=== PATIENT | female | born 1990 | race Caucasian/White ===

== ENCOUNTER → 2016-12-05 | Outpatient (CLI) | payer OTHER ==
[~2016-12-05] MED LIST: B-COCAP2 PO; MULT-506 PO; OXYC7.5T78 PO
--- NOTE | 2016-12-05 13:35 | MAMMOGRAPHY REPORT ---
BILATERAL DIGITAL SCREENING MAMMOGRAM TOMOSYNTHESIS WITH CAD: 12/05/2016 CLINICAL HISTORY: Routine screening. Patient has no complaints. Family history of breast cancer wi th mother diagnosed at age 35. TECHNIQUE: Breast tomosynthesis in addition to standard 2D mammography was performed. Current study was also evaluated with a Computer Aided Detection (CAD) system. COMPARISON: Comparison is made to exams dated: 12/04/2015 mammogram, 11/29/2014 mammogram, and 014 mammogram - [facility]. BREAST COMPOSITION: The tissue of both breasts is extremely dense, which lowers the sensitivity of mammography. FINDINGS: No suspicious masses, calcifications, or areas of architectural distortion are noted in e ither breast. There has been no significant interval change compared to prior exams. IMPRESSION: ACR BI-RADS CATEGORY 1: NEGATIVE There is no mammographic evidence of malignancy. A 1 year screening mammogram is recommended. Addit ionally, given the extremely dense breast parenchyma mammographically and given the strong family hi story of breast cancer, consider yearly screening breast MRI in addition to yearly mammography. The patient will receive written notification of the results. Approximately 10% of breast cancers are not detected with mammography. A negative mammographic repor t should not delay biopsy if a clinically suggestive mass is present. Yessi Ramon M.D. ah/:12/05/2016 12:45:36 Board Certified Orthodontist: Samantha HERNANDEZ)(Gia), [facility] letter sent: Normal 1/2 BI-RADS Code: ACR BI-RADS Category 1: Negative
== END | disposition home or self-care (01) ==
LOC: C.MAMM 12:18
PROVIDERS: ATTEND Obstetrics & Gynecology
DX: Z12.31 Encounter for screening mammogram for malignant neoplasm of breast (principal); Z80.3 Family history of malignant neoplasm of breast

== ENCOUNTER → 2017-07-16 | Outpatient (CLI) | payer OTHER ==
[2017-07-16 10:21] LABS: THYROID STIMULATING HORMONE 1.93 uIu/ml (0.300-4.500)
== END | disposition home or self-care (01) ==
LOC: C.LAB1850 08:59
PROVIDERS: ATTEND Internal Medicine
DX: R53.83 Other fatigue (principal)

== ENCOUNTER → 2017-09-10 | Outpatient (CLI) | payer OTHER | END | disposition home or self-care (01) | LOC: C.PAPS 13:52 | PROVIDERS: ATTEND Obstetrics & Gynecology | DX: Z12.4 Encounter for screening for malignant neoplasm of cervix (principal) ==

== ENCOUNTER → 2017-09-10 | Outpatient (CLI) | payer OTHER | END | disposition home or self-care (01) | LOC: C.LABSPEC 13:17 | PROVIDERS: ATTEND Obstetrics & Gynecology | DX: Z11.3 Encounter for screening for infections with a predominantly sexual mode of transmission (principal) ==

== ENCOUNTER → 2017-12-18 | Outpatient (CLI) | payer OTHER ==
[2017-12-18 12:30] LABS: BASO % 0.5 %; BASO ABS # 0.03 K/uL (0-0.2); EOS % 0.5 %; EOS ABS # 0.03 K/uL (0-0.5); HEMATOCRIT 35.8 % (37-47); HEMOGLOBIN 12.8 g/dL (12.0-16.0); IG# 0.01 K/uL (0.00-0.02); LYMPH % 27.7 %; LYMPH ABS # 1.54 K/uL (1.2-3.4); MEAN CELL VOLUME 84.4 fL (80-100); MEAN CORPUSCULAR HEMOGLOBIN 30.2 pg (25-34); MEAN CORPUSCULAR HGB CONC 35.8 g/dl (32-36); MONO % 6.7 %; MONO ABS # 0.37 K/uL (0.11-0.59); NEUT % 64.4 %; NEUT ABS # 3.58 K/uL (1.4-6.5); PLATELET COUNT 246 K/uL (130-400); RED CELL DISTRIBUTION WIDTH CV 12.4 % (11.5-14.5); RED CELL DISTRIBUTION WIDTH SD 37.7 fL (36.4-46.3); WHITE BLOOD COUNT 5.56 K/uL (4.8-10.8)
== END | disposition home or self-care (01) ==
LOC: C.LAB1850 11:18
PROVIDERS: ATTEND Obstetrics & Gynecology
DX: Z34.01 Encounter for supervision of normal first pregnancy, first trimester (principal)

== ENCOUNTER → 2018-04-23 | Outpatient (CLI) | payer OTHER ==
[2018-04-23 12:14] LABS: HEMOGLOBIN 11.1 g/dL (12.0-16.0)
== END | disposition home or self-care (01) ==
LOC: C.LAB1850 10:45
PROVIDERS: ATTEND Obstetrics & Gynecology
DX: Z34.03 Encounter for supervision of normal first pregnancy, third trimester (principal)

== ENCOUNTER 2022-11-29 15:11 | Inpatient (IN) ==
[~2022-11-29 15:11] MED LIST changes: -B-COCAP2 PO; -MULT-506 PO; -OXYC7.5T78 PO; +ceFAZolin 2000MG 2,000 MG/15 ML SYR IV SCH
--- NOTE | 2022-11-29 15:19 | History & Physical Report ---
Date of Service November 29, 2022 Assessment & Plan (1) PROM (premature rupture of membranes): Plan: Clear evidence of rupture of membranes on sterile speculum exam including pooling ferning and nitrazine positive patient wishes a repeat section she will be sent to labor and delivery which she has arrived already Repeat section. The patient was counseled to the nature of the procedure including alternatives such as labor. Risks were discussed including bleeding infection injury to bowel bladder ureter vessels and even baby. The risks of internal organ injury were discussed as being higher with prior sections. Deep Vein Thrombosis, pulmonary embolus and breakdown of the incision discussed. Deep vein thrombosis pulmonary embolus hernia and failure of the incision to heal were discussed Patient verbalized understanding of this and was given ample time to ask questions Admission and Anticipated Discharge Date Admission Date: November 29, 2022 History of Present Illness Primary Care Provider: Tamara Casillas MD Visit DANIA Calculator Estimated Delivery Date Method Current WG Current Estimate 12/09/22 LMP (Certain) 38w 4d LMP: 03/04/22 : 2 Full term: 1 Premature: 0 Total Number of Induced Abortions: 0 Total Number of Spontaneous Abortions: 0 Ectopics: 0 Multiple births: 0 Number of Living Children: 1 and Delivery Plans Previous Wishes repeat C/S SCHEDULED FOR 12/09/[address] SALEEM Need for Rhogam d/t Rh neg mother Rhogam given 09/20/22 - [place] Flu vaccine given 06/14/22- MK GDM w/28wk glucola *Begin monthly Growth US's 34 weeks AC >98, efw 97% Allergies Allergy/AdvReac Type Severity Reaction Status Date / Time No Known Allergies Allergy Mild Verified 11/29/22 14:31 Home Medications Medication Instructions Recorded Confirmed Type breast pump #1 ea 10/04/22 11/21/22 Rx acetone (urine) test (Ketone Urine #50 ea 10/11/22 11/21/22 Rx Test strips) blood sugar diagnostic (OneTouch #150 ea 10/11/22 11/21/22 Rx Verio test strips) blood-glucose meter (OneTouch #1 ea 10/11/22 11/21/22 Rx Verio Reflect Meter) blood-glucose sensor (FreeStyle #2 ea 10/11/22 11/21/22 Rx Soheila 3 Sensor device) lancets 33 gauge (OneTouch Delica #150 ea 10/11/22 11/21/22 Rx Lancets) nutritional supplement-fiber 1 dose PO UD 11/01/22 11/28/22 History [Juice Plus] ondansetron HCl 4 mg tablet 4 mg PO Q6H PRN nausea and 11/01/22 11/28/22 Rx vomiting #20 tabs docusate sodium 100 mg capsule 100 mg PO DAILY 11/28/22 11/28/22 History (Colace) iron 18 mg tablet 18 mg PO BID 11/28/22 11/28/22 History Patient History Medical History History of chicken pox History of COVID-19 09/2021>RESOLVED History of septic arthritis Polycystic ovarian syndrome Surgical History History of X 1 History of wisdom tooth extraction Hx of hand surgery d/t tenosynovitis>RT RING FINGER Family History Mother Breast cancer, Onset Age: 35 no testing Grandmother (Maternal) Myocardial infarction Other No family history of adverse response to anesthesia Denies family history of Ovarian cancer Prostate cancer Colorectal cancer Social History (Updated 05/17/22 @ 09:53 by Elen Garcia) Smoking Status: Never smoker Second Hand Exposure: No; Hx Alcohol Use: No Hx Substance Use: No Preferred Language: [place] Verdean Communication Ability: Effective Knocker Off Required: No Beliefs That Will Affect Care: None marital status: Single marital status details: eagle Ortiz Andrea [phone] Current Living Situation: Family Current Living Situation Comment: SON AND BOYFRIEND current occupational status: employed current occupation: [employer] L[employer]D How many Children do You have: 1 Feels Safe at Home: Yes Dental Care, Regularly: Yes Physical Activity Frequency: Daily Physical Activity Frequency Comment: activae job and has 2 y/o Seatbelt Use: always Sunscreen Use: Yes Assistive Devices: Contacts and Glasses Review of Systems as per Subjective / HPI Physical Exam Constitutional: WD/WN, vitals as above well developed and well nourished Respiratory: normal respiratory effort, lungs clear to auscultation normal respiratory effort Cardiovascular: RRR, no murmur, no edema Gastrointestinal (Abdomen): normal bowel sounds, soft, nontender, no hepatosplenomegaly Coding Level of Care Code None Diagnoses PROM (premature rupture of membranes) O42.90
[2022-11-29] MEDS ORDERED: AZITHROMYCIN 500 MG in DEXTROSE 5% 250 ML IV STA (15:40)
[2022-11-29] MEDS ORDERED: LACTATED RINGER'S 1,000 ML IV SCH (15:45)
[2022-11-29] MEDS ORDERED: MoRPHine SULFATE PF 1 MG/ML 10 ML AMP/VIAL ONE (16:04)
[2022-11-29] MEDS ORDERED: fentaNYL citrate PF 100 MCG/2 ML VIAL ONE (16:05)
[2022-11-29] MEDS ORDERED: CITRIC ACID/SODIUM CITRATE 15 ML UDC ONE (16:08)
--- NOTE | 2022-11-29 16:09 | Anesthesiology Consultation ---
Date of Service November 29, 2022 Assessment & Plan Chart Review Chart Review: Acceptable Risk for Surgery and Patient NOT seen in Pre Admission Testing Consults Requested none History Height/Weight Height: 5 ft 5 in Weight: 60.781 kg Allergies Allergy/AdvReac Type Severity Reaction Status Date / Time No Known Allergies Allergy Mild Verified 11/29/22 14:31 Medications Home Medications Medication Instructions Recorded Confirmed Last Taken breast pump #1 ea 10/04/22 11/21/22 Unknown acetone (urine) test (Ketone Urine #50 ea 10/11/22 11/21/22 Unknown Test strips) blood sugar diagnostic (OneTouch #150 ea 10/11/22 11/21/22 Unknown Verio test strips) blood-glucose meter (OneTouch #1 ea 10/11/22 11/21/22 Unknown Verio Reflect Meter) blood-glucose sensor (FreeStyle #2 ea 10/11/22 11/21/22 Unknown Soheila 3 Sensor device) lancets 33 gauge (OneTouch Delica #150 ea 10/11/22 11/21/22 Unknown Lancets) nutritional supplement-fiber 1 dose PO UD 11/01/22 11/28/22 Unknown [Juice Plus] ondansetron HCl 4 mg tablet 4 mg PO Q6H PRN nausea and 11/01/22 11/28/22 Unknown vomiting #20 tabs docusate sodium 100 mg capsule 100 mg PO DAILY 11/28/22 11/28/22 Unknown (Colace) iron 18 mg tablet 18 mg PO BID 11/28/22 11/28/22 Unknown Active Medications Generic Name Dose Route Start Last Admin Trade Name Freq PRN Reason Stop Dose Admin Lactated Ringer's 1,000 mls @ 999 mls/hr 11/29/22 15:45 11/29/22 15:59 Lr IV 11/29/22 16:45 125 mls/hr .Q1H1M ERICK Infusion Azithromycin 500 mg/ Dextrose 255 mls @ 127.5 mls/hr 11/29/22 15:40 11/29/22 15:56 IV 11/29/22 17:39 127.5 mls/hr NOW STA Administration Past Medical History Medical History History of chicken pox History of COVID-19 09/2021>RESOLVED History of septic arthritis Polycystic ovarian syndrome Past Family History Family History Mother Breast cancer, Onset Age: 35 no testing Grandmother (Maternal) Myocardial infarction Other No family history of adverse response to anesthesia Denies family history of Ovarian cancer Prostate cancer Colorectal cancer Past Surgical History Surgical History History of X 1 History of wisdom tooth extraction Hx of hand surgery d/t tenosynovitis>RT RING FINGER Social History Smoking Status: Never smoker Do You Dip or Chew Tobacco: No Hx Alcohol Use: No Hx Substance Use: No substance use type: does not use Physical Exam Vital Signs Last Vital Signs Temp 98.6 F 11/29/22 15:34 Pulse 107 H 11/29/22 15:37 Resp 18 11/29/22 15:34 BP 118/90 11/29/22 15:37
[2022-11-29 16:45] LABS: Hematocrit (blood only) 34.6 % (37.0-47.0); Hemoglobin 11.7 g/dl (12.0-16.0); Mean Corpuscular Hemoglobin 29.5 pg (25.0-34.0); Mean Corpuscular Hgb Conc 33.8 g/dL (32.0-36.0); Mean Corpuscular Volume 87.4 fL (80.0-100.0); Mean Platelet Volume 10.6 fL (9.4-12.4); Platelet Count 233 K/uL (130-400); RDW Coefficient of Variation 13.9 % (11.5-14.5); RDW Standard Deviation 44.5 fL (36.4-46.3); Red Blood Count 3.96 M/uL (4.20-5.40); White Blood Count 6.81 K/ul (4.8-10.8)
[2022-11-29] MEDS ORDERED: NALBUPHINE HCL INJ 10 MG/ML AMP IV PRN (17:20)
[2022-11-29] MEDS ORDERED: HYDROmorphone INJ 0.5 MG/0.5 ML SYR IV PRN (17:20)
[2022-11-29] MEDS ORDERED: diphenhydrAMINE 50 MG/ML VIAL IV PRN (17:20)
[2022-11-29] MEDS ORDERED: NALOXONE HCL 0.4 MG/1 ML VIAL/CARP IV PRN (17:20)
[2022-11-29] MEDS ORDERED: LACTATED RINGER'S 500 ML IV PRN (17:20)
[2022-11-29] MEDS ORDERED: MoRPHine SULFATE PF 1 MG/ML 10 ML AMP/VIAL INT SPINAL ONE (17:20)
[2022-11-29] MEDS ORDERED: NALOXONE HCL 0.08 MG in SYRINGE 1.8 ML IV PRN (17:20)
[2022-11-29] MEDS ORDERED: PROMETHAZINE HCL 6.25 MG in SODIUM CHLORIDE 0.9% 50 ML IV PRN (17:20)
[2022-11-29] MEDS ORDERED: ONDANSETRON INJ 2 MG/ML 2 ML VIAL IV PRN (17:20)
[2022-11-29] MEDS ORDERED: NALOXONE HCL 1 MG in SODIUM CHLORIDE 0.9% 1000ML 1,000 ML IV PRN (17:20)
[2022-11-29] MEDS ORDERED: ePHEDrine sulfate 50 MG/ML AMP IV PRN (17:20)
[2022-11-29] MEDS ORDERED: DC INTRASPINAL MORPHINE SCH (17:30)
[2022-11-29] MEDS ORDERED: NO NARCOTICS OR SEDATIVES SCH (17:30)
[2022-11-29] MEDS ORDERED: SODIUM CHLORIDE 0.9% 1000ML 1,000 ML IV SCH (17:30)
[2022-11-29] MEDS ORDERED: ONDANSETRON INJ 2 MG/ML 2 ML VIAL ONE (17:32)
[2022-11-29] MEDS ORDERED: PHENYLEPHRINE HCL 10 MG/ML VIAL ONE (17:32)
[2022-11-29] MEDS ORDERED: KETOROLAC 30 MG/ML VIAL ONE (17:32)
--- NOTE | 2022-11-29 18:10 | Operative Report ---
PG Post Operative Report Pre & Post Diagnosis Operation Date: 11/29/22 16:40 Pre-Op Diagnosis: PROM (premature rupture of membranes) Repeat section Post-Op Diagnosis: Same as pre-op I identified the patient and participated in the time-out.: Yes Procedure Operation Date: 11/29/22 16:40 Actual Procedures p Section in LD; Live male child at 1724(Bilateral) - Heike Lemus MD, FACOG Surgeon Heike Lemus MD, FACOG Edger Liner Dr. Rodriguez Estimated Blood Loss 600 Findings Consistent with Post-Op Diagnosis Specimens cord blood Description of Procedure Regional anesthetic had been given by anesthesia patient was prepped and draped with a leftward tilt preoperative antibiotics had been given in appropriate timing by anesthesiology. Once the prep was allowed to fully dry timeout was performed. Pickups with teeth were used to test the incision area was found to be adequate for incision as the patient did not feel sharp pain. Scalpel was used to make a Pfannenstiel incision on the lower abdomen. We then cut through the subcutaneous fat down to the level of the anterior rectus sheath fascia this was cut in the midline and then extended laterally with the curved Bagley scissors. At this stage we then placed 2 Mark clamps on the anterior aspect of the fascia. Using the curved Bagley's we are able to dissect the fascia superiorly away from the rectus muscles. Care was taken to maintain hemostasis. Mark clamps were then placed to the inferior aspect of the anterior sheath of the fascia. Fascia was then dissected away from the rectus muscles inferiorly towards the pubic bone. A Mark was then placed in the midline both inferiorly and superiorly. This was to allow exposure by retraction rectus muscles were in the midline with were then able to cut through the peritoneum and then enter the peritoneal cavity. Opening was enlarged to allow exposure of the peritoneal cavity both superiorly and inferiorly. Once adequate space was obtained a bladder retractor was placed to expose the lower segment Metzenbaums were used to dissect the bladder flap inferiorly away from the uterus. This was done sharply bladder retractor was then repositioned to expose the lower segment of the uterus Fresh scalpel was used to make a low transverse incision on the uterus. Uterus was then entered bluntly with the operators finger, membranes ruptured and the opening was enlarged using the operators fingers bluntly pulling superiorly and inferiorly to allow exposure. Baby was delivered by first flexion of the head elevation of the head out of the pelvis and then pressure by the placement assistant on the maternal abdomen. Baby's head was then delivered mouth and then nares were suctioned and then using gentle traction the baby was fully delivered. Live vigorous infant. Fluid was clear cord clamped and cut cord gases obtained cord blood obtained baby handed to pediatrics. Placenta removed was removed with traction we ensure the entire placenta was removed with a moist lap sponge into the uterus. Note baby was large and had a loose nuchal cord that was passed over the head fluid was clear baby was in occiput posterior when delivered Uterus was then exteriorized. IV Pitocin had been started by anesthesia tone improved there were no extensions the uterus was then closed using 0 Monocryl in a 2 layer closure the first layer closed in a running locked fashion from left to right and then a second closure from left to right in a running nonlocked fashion. There was an area of lack of hemostasis at the posterior aspect of the bladder on the uterus this was isolated with a hemostat and then tied off with a [id number] 3-0 Vicryl a second 0 Monocryl was placed at a small area of lack of hemostasis at the right corner of the uterine incision At this stage hemostasis was excellent. Uterus was placed back in the peritoneal cavity with suction irrigation out and inspection of the uterus at this stage revealed excellent hemostasis Retractors were removed urine color was clear at this stage of the case we inspected the rectus muscles they were hemostatic fascia was closed with 0 Vicryl subcutaneous fat was irrigated and closed with 3-0 Vicryl skin closed with 4-0 subcuticular Monocryl I attest to the content of the Intraoperative Record and any orders documented therein. Any exceptions are noted below. OB Procedure Charges 40860
[2022-11-29] MEDS ORDERED: OXYTOCIN 10 UNITS/ML 10ML VIAL ONE (18:26)
[2022-11-29] MEDS ORDERED: HYDROCORTISONE ACETATE 25 MG SUPP PR PRN (18:31)
[2022-11-29] MEDS ORDERED: MAGNESIUM HYDROXIDE SUSP 30 ML UDC PO PRN (18:31)
[2022-11-29] MEDS ORDERED: BENZOCAINE 20% AER SPR 82.5 GM CAN EXT PRN (18:31)
[2022-11-29] MEDS ORDERED: PROMETHAZINE HCL 25 MG in SODIUM CHLORIDE 0.9% 50 ML IV PRN (18:31)
[2022-11-29] MEDS ORDERED: DIPHTHERIA/TETANUS/PERTUSSIS 0.5mL SYR/VIAL (Age 7+yrs) IM ONE (18:31)
[2022-11-29] MEDS ORDERED: SENNA 8.6 MG TAB PO PRN (18:31)
--- NOTE | 2022-11-29 18:32 | Anesthesiology Progress Note ---
Date of Service November 29, 2022 Anesthesia Post Procedure Vital Signs Vital Signs: Temp Pulse Resp BP Pulse Ox 11/29/22 18:26 83 98 11/29/22 18:21 78 95 11/29/22 18:20 69 106/64 11/29/22 15:37 107 H 118/90 11/29/22 15:34 98.6 F 18 Transfer of Care Handoff Completed per policy Notes Mental Status: alert / awake / arousable and participated in evaluation Patient Amnestic to Procedure: No Nausea / Vomiting: adequately controlled Pain: adequately controlled Airway Patency, RR, SpO2: stable & adequate BP & HR: stable & adequate Hydration State: stable & adequate Neuraxial Anesthesia: was administered and sensory block is resolving Anesthetic Complications: no major complications apparent and Pt Satisfied with anesthetic care
[2022-11-29] MEDS ORDERED: SODIUM CHLORIDE 0.9% 250 ML IV PRN (19:43)
[2022-11-29] MEDS: OXYTOCIN 20 UNITS in LACTATED RINGER'S 1,000 ML IV SCH (20:38)
[2022-11-29] MEDS: ACETAMINOPHEN 1,000 MG/100 ML VIAL IV PRN (20:39)
[2022-11-29] MEDS: DOCUSATE SODIUM 100 MG CAP PO SCH (23:49)
[2022-11-29] MEDS: SIMETHICONE 80 MG CHEW PO SCH (23:50)
[2022-11-30] MEDS: KETOROLAC 30 MG/ML VIAL IV PRN ×2 (00:46→06:28)
[2022-11-30] MEDS: ACETAMINOPHEN 1,000 MG/100 ML VIAL IV PRN (04:10)
[2022-11-30] MEDS: OXYTOCIN 20 UNITS in LACTATED RINGER'S 1,000 ML IV SCH (04:13)
--- NOTE | 2022-11-30 05:29 | Obstetrical Progress Note ---
Date of Service <Shanthi MillerDO - Last Filed: 11/30/22 07:18> November 30, 2022 Assessment & Plan <Shanthi MillerDO - Last Filed: 11/30/22 07:18> (1) Status post section: continue OOB, ambulation, diet as tolerated <Naty Rodriguez MD - Last Filed: 11/30/22 07:40> (1) Status post section: Subjective <Shanthi MillerDO - Last Filed: 11/30/22 07:18> Vanesa is a 32 y/o female who is POD #1 following delivery at 38 4/7 weeks. She reports feeling well overall this morning. Mild abdominal cramping, well managed on analgesics. Bazzi is still in place. Tolerating fluids overnight. Has some persistent lochia with some improvement this morning. Currently breast feeding. Review of Systems Denies fever, chills, sweats Denies shortness of breath, difficulty breathing, chest pain, palpitations, chest pressure. Denies breast pain. Denies dysuria. Denies headache or changes in vision. Physical Exam <Shanthi MillerDO - Last Filed: 11/30/22 07:18> General: Alert, oriented. No acute distress. Cardiac: Regular rate and rhythm, no murmurs/rubs/gallops. Respiratory: Clear to auscultation bilaterally a/p, no wheezes/rales/rhonchi. No increased work of breathing. Symmetrical chest rise. No respiratory distress. Abdomen: Soft, nontender, nondistended. Uterus: Uterine fundus firm. Surgical scar clean and healing well. Lower Extremities: No lower extremity edema or swelling. No deep calf pain. Results & Data <Shanthi MillerDO - Last Filed: 11/30/22 07:18> Vital Signs (Past 12 Hours) Vital Signs Temp Pulse Pulse Pulse Resp BP BP 11/30/22 05:03 18 11/30/22 04:30 36.4 C L 68 18 98/64 L 11/30/22 04:02 18 11/30/22 03:00 16 11/30/22 02:00 18 11/30/22 00:57 16 11/30/22 00:00 16 11/29/22 23:00 18 11/29/22 23:05 36.8 C 70 18 98/58 L 11/29/22 22:00 18 11/29/22 21:15 18 11/29/22 21:15 36.6 C 60 60 20 105/66 11/29/22 20:25 18 11/29/22 20:25 18 11/29/22 19:55 37.0 C 18 11/29/22 19:25 18 11/29/22 19:25 36.7 C 18 11/29/22 18:55 36.5 C 62 18 102/67 11/29/22 18:45 18 11/29/22 18:35 16 11/29/22 18:25 36.5 C 18 11/29/22 20:49 87 11/29/22 20:44 81 11/29/22 20:39 72 11/29/22 20:34 76 11/29/22 20:29 75 11/29/22 20:30 70 115/62 11/29/22 20:24 75 11/29/22 20:19 66 11/29/22 20:14 84 11/29/22 20:09 74 11/29/22 20:04 81 11/29/22 19:59 65 11/29/22 19:54 65 11/29/22 19:49 76 11/29/22 19:44 65 11/29/22 19:41 66 106/56 L 11/29/22 19:39 73 11/29/22 19:34 77 11/29/22 19:31 55 L 112/67 11/29/22 19:29 70 11/29/22 19:24 73 11/29/22 19:22 80 109/51 L 11/29/22 19:19 70 11/29/22 19:14 70 11/29/22 19:13 71 154/59 H 11/29/22 19:08 66 11/29/22 19:06 68 11/29/22 19:01 75 11/29/22 19:02 65 110/56 L 11/29/22 18:56 73 11/29/22 18:51 11/29/22 18:51 70 11/29/22 18:51 74 11/29/22 18:46 82 11/29/22 18:41 133 H 11/29/22 18:36 91 H 11/29/22 18:33 80 11/29/22 18:31 83 115/68 11/29/22 18:26 83 11/29/22 18:21 78 11/29/22 18:20 69 106/64 Pulse Ox O2 Del Method 11/30/22 05:03 97 11/30/22 04:30 98 Room Air 11/30/22 04:02 97 11/30/22 03:00 95 11/30/22 02:00 97 11/30/22 00:57 99 11/30/22 00:00 97 11/29/22 23:00 98 11/29/22 23:05 98 Room Air 11/29/22 22:00 98 11/29/22 21:15 100 11/29/22 21:15 100 Room Air 11/29/22 20:25 99 11/29/22 20:25 98 11/29/22 19:55 99 11/29/22 19:25 98 11/29/22 19:25 99 11/29/22 18:55 99 Room Air 11/29/22 18:45 11/29/22 18:35 11/29/22 18:25 11/29/22 20:49 100 11/29/22 20:44 100 11/29/22 20:39 100 11/29/22 20:34 100 11/29/22 20:29 100 11/29/22 20:30 11/29/22 20:24 100 11/29/22 20:19 100 11/29/22 20:14 100 11/29/22 20:09 98 11/29/22 20:04 100 11/29/22 19:59 100 11/29/22 19:54 100 11/29/22 19:49 100 11/29/22 19:44 100 11/29/22 19:41 11/29/22 19:39 100 11/29/22 19:34 100 11/29/22 19:31 11/29/22 19:29 100 11/29/22 19:24 100 11/29/22 19:22 11/29/22 19:19 100 11/29/22 19:14 99 11/29/22 19:13 11/29/22 19:08 93 11/29/22 19:06 98 11/29/22 19:01 97 11/29/22 19:02 11/29/22 18:56 98 11/29/22 18:51 98 11/29/22 18:51 11/29/22 18:51 93 11/29/22 18:46 97 11/29/22 18:41 92 11/29/22 18:36 97 11/29/22 18:33 94 11/29/22 18:31 100 11/29/22 18:26 98 11/29/22 18:21 95 11/29/22 18:20 <Naty Rodriguez MD - Last Filed: 11/30/22 07:40> Co-Signing Physician Notes Resident Physician Supervision Note: I interviewed and examined the patient. Discussed with Dr. Miller and agree with findings and plan as documented in the note. Any exceptions or clarifications are listed here: POD1 s/p rLTCS, doing well. VSS, exam benign and wnl. Dressing c/d/i. DTV, continue rout pp care Documented By: Naty Rodriguez MD Resident Activity Tracking <Shanthi Miller DO - Last Filed: 11/30/22 07:18> Resident Involvement: Resident Care Provided Care Provided: OB Delivery (post )
[2022-11-30] MEDS ORDERED: CITRIC ACID/SODIUM CITRATE 15 ML UDC PO SCH (06:00)
[2022-11-30 07:04] LABS: Basophils # (auto) 0.02 K/uL (0-0.2); Basophils % (auto) 0.3 %; Eosinophils # (auto) 0.09 K/uL (0-0.50); Eosinophils % (auto) 1.2 %; Hematocrit (blood only) 29.4 % (37.0-47.0); Hemoglobin 9.9 g/dl (12.0-16.0); Immature Granulocytes # (auto) 0.02 K/uL (0.01-0.20); Immature Granulocytes % (auto) 0.3 %; Lymphocytes # (auto) 0.94 K/uL (1.2-3.4); Lymphocytes % (auto) 12.4 %; Mean Corpuscular Hemoglobin 29.9 pg (25.0-34.0); Mean Corpuscular Hgb Conc 33.7 g/dL (32.0-36.0); Mean Corpuscular Volume 88.8 fL (80.0-100.0); Mean Platelet Volume 10.2 fL (9.4-12.4); Monocytes # (auto) 0.53 K/uL (0.11-0.59); Neutrophils # (auto) 6.01 K/uL (1.40-6.50); Neutrophils % (auto) 78.8 %; Platelet Count 179 K/uL (130-400); RDW Coefficient of Variation 13.9 % (11.5-14.5); RDW Standard Deviation 45.1 fL (36.4-46.3); Red Blood Count 3.31 M/uL (4.20-5.40); White Blood Count 7.61 K/ul (4.8-10.8)
[2022-11-30] MEDS: DOCUSATE SODIUM 100 MG CAP PO SCH ×2 (08:42→19:58)
[2022-11-30] MEDS: SIMETHICONE 80 MG CHEW PO SCH ×4 (08:42→19:57)
[2022-11-30] MEDS: FERROUS SULFATE 325 MG TAB PO SCH (08:42)
[2022-11-30] MEDS: PRENATAL VITAMIN 1 TAB PO SCH (08:43)
[2022-11-30] MEDS ORDERED: diphenhydrAMINE Capsule 25 MG CAP PO PRN (11:20)
[2022-11-30] MEDS ORDERED: KETOROLAC 30 MG/ML VIAL IV PRN (11:20)
[2022-11-30] MEDS ORDERED: oxyCODONE/ACETAMINOPHEN 5mg/325mg TAB PO PRN (11:20)
[2022-11-30] MEDS ORDERED: diphenhydrAMINE 50 MG/ML VIAL IV PRN (11:20)
[2022-11-30] MEDS ORDERED: ONDANSETRON INJ 2 MG/ML 2 ML VIAL IV PRN (11:20)
[2022-11-30] MEDS: HYDROCODONE/ACETAMOPHEN 5/325MG TAB PO PRN ×4 (11:43→23:38)
[2022-11-30] MEDS: IBUPROFEN 600 MG TAB PO PRN ×4 (11:44→23:37)
[2022-11-30] MEDS ORDERED: bisacodyL 5 MG TABEC PO SCH (20:00)
[2022-12-01] MEDS: HYDROCODONE/ACETAMOPHEN 5/325MG TAB PO PRN ×2 (03:45→20:47)
[2022-12-01] MEDS: IBUPROFEN 600 MG TAB PO PRN ×4 (03:45→20:47)
[2022-12-01 06:49] LABS: Hematocrit (blood only) 26.7 % (37.0-47.0); Hemoglobin 8.9 g/dl (12.0-16.0)
--- NOTE | 2022-12-01 07:16 | Obstetrical Progress Note ---
Date of Service December 01, 2022 Assessment & Plan (1) Status post section: Recovering well, incision looks good, D/C instructions reviewed. Hasn't passed gas yet but ambulating and chewing gum, knows what to watch for. May or may not desire D/C today but will let us know, is leaning towards going home so prepared as if she will decide to. Subjective Ambulation: ambulating normally Voiding: no voiding problems Passing Gas:: Yes Diet Tolerance:: regular diet Lochia:: Small Feeding Type:: breast feeding Physical Exam Constitutional WD/WN, vitals as above Eyes PERRL, conjunctivae normal, anicteric sclerae Neck normal visual inspection Respiratory normal respiratory effort and able to speak in complete sentences; no respiratory distress and no labored breathing Cardiovascular Rate/Rhythm: regular rate and regular rhythm Extremities: no edema Chest (Breasts) Chest: normal inspection of chest Gastrointestinal (Abdomen) Inspection/Auscultation: abdomen normal to inspection Soft, postgravid Psychiatric A+Ox3, euthymic affect Genitourinary OB Exam Abdomen: + fundal height Fundus: + firm and + relation to umbilicus (f undus just below umbilicus); not tender Results & Data Vital Signs (Past 12 Hours) Vital Signs Temp Pulse Resp BP Pulse Ox O2 Del Method 11/30/22 23:13 97.3 F L 86 18 94/58 L 98 Room Air 11/30/22 19:45 97.9 F 76 20 93/57 L 98 Room Air
[2022-12-01] MEDS: SIMETHICONE 80 MG CHEW PO SCH ×4 (08:41→20:48)
[2022-12-01] MEDS: FERROUS SULFATE 325 MG TAB PO SCH (08:42)
[2022-12-01] MEDS: DOCUSATE SODIUM 100 MG CAP PO SCH ×2 (08:42→20:48)
[2022-12-01] MEDS: PRENATAL VITAMIN 1 TAB PO SCH (08:43)
[2022-12-01] MEDS ORDERED: ACETAMINOPHEN 325 MG TAB PO PRN (15:29)
[2022-12-01] MEDS ORDERED: bisacodyL 10 MG SUPP PR PRN (18:19)
[2022-12-02] MEDS: LACTATED RINGER'S 1,000 ML IV SCH ×2 (00:54→00:55)
[2022-12-02] MEDS: HYDROCODONE/ACETAMOPHEN 5/325MG TAB PO PRN (01:30)
[2022-12-02] MEDS: IBUPROFEN 600 MG TAB PO PRN ×2 (01:31→09:18)
--- NOTE | 2022-12-02 05:27 | Obstetrical Progress Note ---
Date of Service <Shanthi MillerDO - Last Filed: 12/02/22 06:14> December 02, 2022 Assessment & Plan <Shanthi MillerDO - Last Filed: 12/02/22 06:14> (1) Status post section: continue OOB, ambulation, diet as tolerated Plan for post f/u in 6 weeks <Nuha Granger MD - Last Filed: 12/02/22 06:51> (1) Status post section: Subjective <Shanthi MillerDO - Last Filed: 12/02/22 06:14> Vanesa is a 32 y/o female who is POD #3 following delivery at 38 4/7 weeks. She reports feeling well overall this morning. Mild abdominal cramping, well managed on analgesics. Voiding Tolerating full diet. Passing gas. Has some persistent lochia with some improvement this morning. Currently breast feeding. Review of Systems Denies fever, chills, sweats Denies shortness of breath, difficulty breathing, chest pain, palpitations, chest pressure. Denies breast pain. Denies dysuria. Denies headache or changes in vision. Physical Exam <Shanthitanika MillerDO - Last Filed: 12/02/22 06:14> General: Alert, oriented. No acute distress. Cardiac: Regular rate and rhythm, no murmurs/rubs/gallops. Respiratory: Clear to auscultation bilaterally a/p, no wheezes/rales/rhonchi. No increased work of breathing. Symmetrical chest rise. No respiratory distress. Abdomen: Soft, nontender, nondistended. Uterus: Uterine fundus firm 3 cm below umbilicus. Surgical scar clean and healing well. Lower Extremities: No lower extremity edema or swelling. No deep calf pain. Results & Data <Shanthitanika MillerDO - Last Filed: 12/02/22 06:14> Vital Signs (Past 12 Hours) Vital Signs Temp Pulse Resp BP Pulse Ox O2 Del Method 12/01/22 23:15 Room Air 12/01/22 23:07 36.7 C 85 18 111/73 98 Room Air 12/01/22 20:50 36.8 C 89 16 112/71 97 Room Air <Nuha Granger MD - Last Filed: 12/02/22 06:51> Co-Signing Physician Notes Resident Physician Supervision Note: I interviewed and examined the patient. Discussed with Dr. Miller and agree with findings and plan as documented in the note. Any exceptions or clarifications are listed here: Patient not actually available to be seen by this MD during rounds today, however I prepared her for D/C home yesterday and there have been no major changes. The prescription for at-home pain medicine was changed from percocet to norco at patient request. Documented By: Nuha Granger MD, FACOG Resident Activity Tracking <Shanthi Miller, - Last Filed: 12/02/22 06:14> Resident Involvement: Resident Care Provided Care Provided: OB Delivery (post )
[2022-12-02] MEDS: PRENATAL VITAMIN 1 TAB PO SCH (08:16)
[2022-12-02] MEDS: DOCUSATE SODIUM 100 MG CAP PO SCH (08:16)
[2022-12-02] MEDS: SIMETHICONE 80 MG CHEW PO SCH (08:16)
[2022-12-02] MEDS: FERROUS SULFATE 325 MG TAB PO SCH (08:16)
--- NOTE | 2022-12-04 08:32 | Discharge Summary ---
Date of Service December 04, 2022 Admission HPI Per Admitting Provider Visit DANIA Calculator Estimated Delivery Date Method Current WG Current Estimate 12/09/22 LMP (Certain) 38w 4d LMP: 03/04/22 : 2 Full term: 1 Premature: 0 Total Number of Induced Abortions: 0 Total Number of Spontaneous Abortions: 0 Ectopics: 0 Multiple births: 0 Number of Living Children: 1 and Delivery Plans Previous Wishes repeat C/S SCHEDULED FOR 12/09/[address] SALEEM Need for Rhogam d/t Rh neg mother Rhogam given 09/20/22 - [place] Flu vaccine given 06/14/22- MK GDM w/wk glucola *Begin monthly Growth US's 34 weeks AC >98, efw 97% Admission Exam (Per Admitting) Constitutional WD/WN, vitals as above well developed and well nourished Respiratory normal respiratory effort, lungs clear to auscultation normal respiratory effort Cardiovascular RRR, no murmur, no edema Gastrointestinal (Abdomen) normal bowel sounds, soft, nontender, no hepatosplenomegaly Discharge Data Consultations 11/29/22 15:40 Consult Anesthesiology Stat Procedures Performed Operation Date: 11/29/22 16:40 Actual Procedures p Section in LD; Live male child at 1724(Bilateral) - Heike Saleem MD, [facility] Hospital Course (1) Status post section: continue OOB, ambulation, diet as tolerated Plan for post f/u in 6 weeks Supervising Physician Co-Signing Physician Notes Resident Physician Supervision Note: I interviewed and examined the patient. Discussed with Dr. Miller and agree with findings and plan as documented in the note. Any exceptions or clarifications are listed here: Patient not actually available to be seen by this MD during rounds today, however I prepared her for D/C home yesterday and there have been no major changes. The prescription for at-home pain medicine was changed from percocet to norco at patient request. Documented By: Nuha Granger MD, [facility] Coding Level of Care Code None Diagnoses Status post section Z98.891
== END 2022-12-02 11:15 | disposition home or self-care (01) | DRG 788 ==
LOC: 4S1 15:11 → 4E2 21:10